=== PATIENT | male | born 1970 | race Caucasian/White ===

== ENCOUNTER → 2018-10-09 07:57 | Outpatient (CLI) | payer OTHER, SELFPAY ==
--- NOTE | 2018-10-09 11:23 | PFT ---
INTRODUCTION: The patient is a 48-year-old male that presents for pulmonary function testing secondary to a diagnosis of cough/wheezing. Respiratory therapy reports good patient effort. Bronchodilators were used during testing. INTERPRETATION: Forced expiration spirometry demonstrates no evidence of a large airways obstructive ventilatory defect. There was, nevertheless, evidence of a significant bronchodilator response, based upon change noted in FEV1. Spirograms are of good quality and plateau normally. The respiratory flow volume loop appears normal. Body plethysmography was performed and reveals lung volumes to be within normal limits. Diffusing capacity by single breath CO is also within normal limits. IMPRESSION: Grossly normal pulmonary function studies, with the exception of a positive bronchodilator response. This could be in keeping with underlying asthma, in the appropriate clinical setting.
== END ==
LOC: PSN 07:59
PROVIDERS: Family Provider Family Medicine; PCP Family Medicine; Referring Provider Family Medicine; Visit Provider Family Medicine
DX: R05 Cough (principal); R06.2 Wheezing; F17.200 Nicotine dependence, unspecified, uncomplicated
CPT/HCPCS: 94060; 94726; 94729

== ENCOUNTER 2018-12-07 14:29 | Emergency (ER) | payer SELFPAY ==
[2018-12-07 14:30] VITALS: BP 132/68; PULSE 78; RESP 16; TEMP 36.5; O2SAT 98; BMI 25.7
[2018-12-07 14:37] VITALS: O2SAT 98
--- NOTE | 2018-12-07 15:08 | EKG12_ITS ---
Test Reason : SOB Blood Pressure : / mmHG Vent. Rate : 064 BPM Atrial Rate : 064 BPM P-R Int : 162 ms QRS Dur : 096 ms QT Int : 382 ms P-R-T Axes : 023 063 045 degrees QTc Int : 394 ms Normal sinus rhythm Normal ECG Confirmed by EVELIA CORREA MD ([id number]), marketing editor RAMAKRISHNA HIGUERA ([id number]) on 12/09/2018 8:06:16 AM Referred By: TL Confirmed By:EVELIA CORREA MD
--- NOTE | 2018-12-07 15:08 | RAD_ITS ---
STUDY: X-RAY CHEST REASON FOR EXAM: Male, 48 years old. Productive cough. Shortness of breath. TECHNIQUE: Single AP portable view of the chest. COMPARISON: None. FINDINGS: The lungs are clear and expanded. There is no demonstrated pleural abnormality. Normal size heart. Normal mediastinum and devang. Normal visualized pulmonary arteries. Normal visualized aortic arch and descending thoracic aorta. Normal visualized thoracic spine. Normal visualized ribs, clavicles, and shoulders. There is no demonstrated abnormality of the visualized soft tissue structures of the upper abdomen. RAD/Chest 1 View (Portable) IMPRESSION: Normal x-ray examination of the chest. Electronically Signed: Rob Norton MD at 15:44 EDT , Service support ,
--- NOTE | 2018-12-07 15:09 | ED.VISSUMM ---
- ER Visit Summary Date of Service: 12/07/18 Chief Complaint: Shortness of breath, cough History of Present Illness: The patient is a 48 M presenting with shortness of breath, cough. He states this has been ongoing for several months. He was seen by his primary care physician on . He was told that he likely has asthma. Patient states he does not believe this diagnosis. He was given Singulair, an inhaler, and prednisone. He states he continues to have cough. He denies fever. Denies chest pain. He states he has multiple sick contacts. Denies other complaints. Physical Examination: Vitals are stable. Patient is afebrile. Alert no acute distress. HEENT exam is unremarkable. Neck is supple. Lungs are wheezing bilaterally. Heart is regular rate and rhythm. Abdomen is soft nontender nondistended. Extremities are unremarkable. Skin is warm and dry. No focal neurologic deficit. Remainder of exam is unremarkable. Emergency Department Course and Treatment: Patient was given albuterol, Atrovent aerosols. EKG is sinus rhythm rate of 64 with no acute ischemic changes. Chest x-ray shows no acute process. CBC shows white count of 13.2. He is on prednisone. Chemistries unremarkable. Troponin is negative. D-dimer negative. On repeat evaluation, his lungs have improvement after breathing treatment. He is given prescription for Tessalon Perles. Advised to follow-up with his primary care physician. Advised return to ED for worsening complaints. Disposition: Discharge home Impression: Bronchitis This note was generated with [employer] dictation software. It may contain incorrect words, spelling, and punctuation that were not noted in review of the chart prior to signing ED Disposition - Plan for ED Patient: Instructions: ED Upper Resp Infec No Abx Tx Prescriptions: Benzonatate [Tessalon Perle] 200 mg PO TID PRN PRN #20 capsule PRN Reason: Cough Referrals: Rubén Rhodes DO [STAFF PHYSICIAN] - Ken Reeder MD [Primary Care Provider] -
[2018-12-07 15:22] LABS: Absolute Lymphocyte Count 1.55 X10^3/ul (0.83-4.51); Absolute Neutrophil Count 11.3 X10^3/uL (2.0-7.7); Basophil# 0.01 X10^3/uL; Basophil% 0.1 % (0-1); Eosinophil# 0.01 X10^3/uL; Eosinophils% 0.1 % (0-5); Hematocrit 42.1 % (40-54); Hemoglobin 14.4 g/dl (13.0-16.5); Lymphocyte # 1.55 X10^3/ul (4.0); Lymphocyte % 11.7 % (19-41); Mean Corp Hgb Conc 34.2 g/gl (32-36); Mean Corpuscular Hgb 30.5 pg (27.0-32.0); Mean Corpuscular Volume 89.2 fL (80-94); Mean Platelet Vol. 11.5 fl (6.2-12.0); Monocyte# 0.32 X10^3/uL; Monocyte% 2.4 % (0-10); Neutrophil % 85.4 % (47-70); POSITIVE COUNT NO; POSITIVE DIFFERENTIAL NO; POSITIVE MORPHOLOGY NO; Platelet Count 178 K/mm3 (150-450); RBC Distribution Width CV 13.6 % (11.6-14.6); RBC Distribution Width SD 44.3 fl (35.1-43.9); Red Blood Count 4.72 M/mm3 (4.6-6.2); White Blood Count 13.2 K/mm3 (4.4-11.0)
[2018-12-07] MEDS: Albuterol 2.5 MG/3 ML VIAL.NEB. INHALATION ×2 (15:27)
[2018-12-07 15:28] VITALS: PULSE 71; RESP 18
[2018-12-07] MEDS: Ipratropium/Albuterol Sulfate 3 ML AMPUL.NEB INHALATION (15:28)
[2018-12-07 15:30] LABS: D-Dimer Quantitative (DVT/PE) < 0.27 FEU/ug/m (0.27-0.49)
[2018-12-07 15:45] LABS: Anion Gap 6 (5-15); BUN 21 mg/dL (7-18); BUN/Creat Ratio 22.6 RATIO (10-20); Calcium,Total 8.8 mg/dL (8.5-10.1); Chloride 111 mmol/L (98-107); Creatinine, Serum 0.93 mg/dL (0.70-1.30); EST Glomerular Filtration Rate 92 mL/min (>60); Est Glom Filt Rate - Afr Amer 112 mL/min (>60); Estimated Creatinine Clearance 104.58 ml/min; Glucose 113 mg/dL (74-106); Potassium 3.8 mmol/L (3.5-5.1); Sodium Level 142 mmol/L (136-145)
[2018-12-07 16:32] VITALS: BP 116/60; PULSE 79; RESP 19; O2SAT 98
--- NOTE | 2018-12-07 16:59 | ED.DEP ---
ED Disposition - Plan for ED Patient: Instructions: ED Upper Resp Infec No Abx Tx Prescriptions: Benzonatate [Tessalon Perle] 200 mg PO TID PRN PRN #20 capsule PRN Reason: Cough Referrals: Ken Reeder MD [Primary Care Provider] - Rubén Rhodes DO [STAFF PHYSICIAN] -
[2018-12-07 17:12] VITALS: BP 134/61; PULSE 88; RESP 20; O2SAT 97
--- NOTE | 2018-12-07 17:12 | ED.RN ---
PT GIVEN WRITTEN AND VERBAL DISCHARGE INSTRUCTIONS AND HOME GOING PRESCRIPTIONS. PT VERBALIZES UNDERSTANDING AND DENIES ANY FURTHER QUESTIONS. PT IV D/C AND COVERED WITH 2X2 GAUZE AND PAPER TAPE. MONITOR REMOVED. PT DRESSES SELF AND AMBULATES OUT OF DEPT WITH FAMILY.
== END 2018-12-07 17:14 | disposition home or self-care (01) ==
LOC: ED 15:11
PROVIDERS: Emergency Provider Emergency Medicine; Family Provider Family Medicine; PCP Family Medicine
DX: J40 Bronchitis, not specified as acute or chronic (principal); J45.909 Unspecified asthma, uncomplicated; F41.9 Anxiety disorder, unspecified; F90.9 Attention-deficit hyperactivity disorder, unspecified type; Z79.899 Other long term (current) drug therapy; Z72.0 Tobacco use
CPT/HCPCS: 71045; 80048; 84484; 85025; 85379; 93005; 94640; 99284; A4216